=== PATIENT | male | born 1995 | race Caucasian/White ===

== ENCOUNTER 2020-02-26 14:53 | Emergency (ER) | payer BC ==
[~2020-02-26] VITALS: Ht 182.9 cm; Wt 79.4 kg
[2020-02-26 15:14] VITALS: BP 128/76
[2020-02-26] MEDS ORDERED: LIDOCAINE HCL/MPF 1% 30 ML VIAL IJ ONE (16:12)
[2020-02-26] MEDS ORDERED: IBUPROFEN 600 MG TABLET ONE (16:16)
[2020-02-26] MEDS: IBUPROFEN 600 MG TABLET PO ONE (16:17)
[2020-02-26] MEDS: LIDOCAINE 2% 20 ML MDV TP ONE (16:17)
--- NOTE | 2020-02-26 17:39 | NUR ---
LAC REPAIR DONE BY [email or web address], COVERED WITH DRY DRESSING.
== END 2020-02-26 17:40 | disposition home or self-care (01) ==
LOC: ER 15:01
DX: S61.412A Laceration without foreign body of left hand, initial encounter (principal); W26.0XXA Contact with knife, initial encounter; Y93.89 Activity, other specified; Y92.89 Other specified places as the place of occurrence of the external cause; Y99.8 Other external cause status
CPT/HCPCS: 12001; 99283; A6403; J3490